=== PATIENT | male | born 1960 | race Hispanic/Latino ===

== ENCOUNTER 2023-03-07 06:07 | Day surgery (SDC) | payer OTHER, MEDICARE ==
[2023-03-04 12:04] VITALS: BP 141/78; PULSE 85; RESP 18
[2023-03-07] VITALS (12 sets, daily range): BP systolic 96–137; BP diastolic 58–71; PULSE 68–80; RESP 14–21
[~2023-03-07] VITALS: Ht 172.7 cm; Wt 87.7 kg
[~2023-03-07 06:07] MED LIST: CALC500T7 PO; ESOM20CA31 PO
[2023-03-07] MEDS ORDERED: GLIP10TA9 PO (08:58)
[2023-03-07] MEDS ORDERED: SACU1TAB PO (08:58)
[2023-03-07] MEDS ORDERED: CARV25TA PO (08:58)
[2023-03-07] MEDS ORDERED: ICOS1CAP2 PO (08:58)
[2023-03-07] MEDS ORDERED: FURO40TA5 PO (08:58)
[2023-03-07] MEDS ORDERED: METO5TAB7 PO (08:58)
[2023-03-07] MEDS ORDERED: APIX5TAB PO (08:58)
[2023-03-07] MEDS ORDERED: FLUT1BLS3 IH (08:58)
[2023-03-07] MEDS ORDERED: ALLO300T2 PO (08:58)
[2023-03-07] MEDS ORDERED: DIGO125T71 PO (08:58)
[2023-03-07] MEDS ORDERED: ATOR20TA65 PO (08:58)
[2023-03-07] MEDS ORDERED: 0.9%NACL 1000ML 1,000 ML IV ONE (09:00)
[2023-03-07] MEDS ORDERED: PROPOFOL 10 MG/ML 20ML VIAL IV ONE ×2 (09:22)
== END 2023-03-07 11:30 | disposition home or self-care (01) ==
LOC: DAH 06:07 → ENDO 06:07
PROVIDERS: ATTEND Internal Medicine Gastroenterology
DX: Z12.11 Encounter for screening for malignant neoplasm of colon (principal); K29.80 Duodenitis without bleeding; K29.50 Unspecified chronic gastritis without bleeding; K44.9 Diaphragmatic hernia without obstruction or gangrene; I11.0 Hypertensive heart disease with heart failure; I50.9 Heart failure, unspecified; R63.4 Abnormal weight loss; E11.9 Type 2 diabetes mellitus without complications; I25.10 Atherosclerotic heart disease of native coronary artery without angina pectoris; F41.9 Anxiety disorder, unspecified; F32.A Depression, unspecified; E78.00 Pure hypercholesterolemia, unspecified; M19.90 Unspecified osteoarthritis, unspecified site; Z79.899 Other long term (current) drug therapy; Z79.01 Long term (current) use of anticoagulants; Z88.3 Allergy status to other anti-infective agents; Z91.013 Allergy to seafood; Z86.73 Personal history of transient ischemic attack (TIA), and cerebral infarction without residual deficits; Z87.891 Personal history of nicotine dependence; Z72.89 Other problems related to lifestyle; Z88.0 Allergy status to penicillin; Z88.8 Allergy status to other drugs, medicaments and biological substances; Z68.28 Body mass index [BMI] 28.0-28.9, adult; Z95.0 Presence of cardiac pacemaker
CPT/HCPCS: 82948 ×2; 43239; J7030 ×2; J2704 ×2; A4620; G0121; A4215 ×2; A4223; A7002; A4222; A4221; A4663; A4216; A4606; J3490

== ENCOUNTER 2023-03-08 05:33 | Day surgery (SDC) | payer OTHER, MEDICARE ==
[~2023-03-08] VITALS: Ht 172.7 cm; Wt 87.5 kg
[2023-03-08] VITALS (11 sets, daily range): BP systolic 103–130; BP diastolic 56–74; PULSE 70–82; RESP 10–15
[~2023-03-08 05:33] MED LIST changes: +ALLO300T2 PO; +APIX5TAB PO; +ATOR20TA65 PO; -CALC500T7 PO; +CARV25TA PO; +DIGO125T71 PO; -ESOM20CA31 PO; +FLUT1BLS3 IH; +FURO40TA5 PO; +GLIP10TA9 PO; +ICOS1CAP2 PO; +METO5TAB7 PO; +SACU1TAB PO
[2023-03-08] MEDS ORDERED: PROPOFOL 10 MG/ML 20ML VIAL IV ONE (08:32)
[2023-03-08] MEDS ORDERED: LIDOCAINE PF 100MG/5ML (2%) SYRINGE 5ML ONE (08:32)
== END 2023-03-08 10:00 | disposition home or self-care (01) ==
LOC: DAH 05:33 → ENDO 05:33
PROVIDERS: ATTEND Internal Medicine Gastroenterology
DX: Z12.11 Encounter for screening for malignant neoplasm of colon (principal); K51.40 Inflammatory polyps of colon without complications; K63.5 Polyp of colon; K64.4 Residual hemorrhoidal skin tags; K64.0 First degree hemorrhoids; K57.30 Diverticulosis of large intestine without perforation or abscess without bleeding; I11.0 Hypertensive heart disease with heart failure; I50.9 Heart failure, unspecified; I25.10 Atherosclerotic heart disease of native coronary artery without angina pectoris; I25.2 Old myocardial infarction; E11.9 Type 2 diabetes mellitus without complications; E78.00 Pure hypercholesterolemia, unspecified; M19.90 Unspecified osteoarthritis, unspecified site; F41.9 Anxiety disorder, unspecified; F32.A Depression, unspecified; Z79.899 Other long term (current) drug therapy; Z98.890 Other specified postprocedural states; Z87.891 Personal history of nicotine dependence; Z86.73 Personal history of transient ischemic attack (TIA), and cerebral infarction without residual deficits; Z72.89 Other problems related to lifestyle; Z95.0 Presence of cardiac pacemaker; Z88.8 Allergy status to other drugs, medicaments and biological substances; Z88.0 Allergy status to penicillin; Z68.28 Body mass index [BMI] 28.0-28.9, adult
CPT/HCPCS: 82948; 45380; J2001; J2704; A4620; A4215 ×2; A4223; A4657 ×3; A7002; A4222; A4221; A4663; A4216; A4606; J3490